=== PATIENT | male | born 1965 | race Caucasian/White ===

== ENCOUNTER 2025-08-16 00:50 | Emergency (ER) | payer BC, SELFPAY ==
[2025-08-16 01:31] VITALS: BP 182/93; PULSE 80; RESP 20; TEMP 36.6; O2SAT 96
--- NOTE | 2025-08-16 02:01 | PD.EDEXREM ---
ED Extremity Problem RME/HPI General Chief complaint: General Adult/Misc Complain Stated complaint: Ganglion cyst left wrist Time Seen by Provider: 08/16/25 01:45 Arrival date/time: 08/16/25 00:50 60M with history of HTN and gout presents to ED with L wrist pain/gout flare. Patient denies fall/trauma, fevers/chills, and surgery on that joint. Patient states his trigger for gout is nuts and he had some recently. Limitations: no limitations Related Data Home Medications ?Medication ?Instructions ?Recorded ?Confirmed losartan 25 mg tablet 25 mg PO QDAY 07/07/18 07/08/18 Previous Rx's ?Medication ?Instructions ?Recorded prednisone 50 mg tablet 50 mg PO QDAY 5 days #5 tabs 08/16/25 Allergies Allergy/AdvReac Type Severity Reaction Status Date / Time KG Inhibitors Allergy Severe Swelling Verified 08/16/25 00:52 of Lip/Tongue/Throat Review of Systems Review of Systems Systems Reviewed: All systems reviewed, normal except as documented Musculoskeletal Musculoskeletal: Reports as per HPI and Reports arthralgias Past Medical History Past Medical History NEUROLOGIC: Positive Neurological Disorders, Migraine and Head Trauma (as a child) CARDIAC: Positive Cardiac Disorders, Angina, Heart Murmur and Hypercholesterolemia; Negative Congestive Heart Failure RESPIRATORY: Positive Pneumonia; Negative Chronic Obstructive Pulmonary Disease (COPD) GASTROINTESTINAL: Positive Gastrointestinal Disorders GENITOURINARY: Negative Genitourinary Disorders or Renal Disease MUSCULOSKELETAL: Positive Musculoskeletal Disorders and Fractures (right arm x3 left x1 right leg x1 left knee skull fracture as a child) ENT: Positive Head Trauma (as a child) ENDOCRINE: Positive Endocrine Disorders and Diabetes Mellitus Type 2; Negative Diabetes Mellitus Type 1 HEMATOLOGIC: Negative Blood Disorders OTHER HISTORY: Positive Chicken Pox and Mumps; Negative Autoimmune Disease Family History FAMILY HISTORY: Positive Family Cancer (uncle leukemia); Negative Family Psychiatric Problems, Family Respiratory Disorders, Family Cardiac Disorders, Family Gastrointestinal Problems, Family Surgery or Family Anesthesia Reaction Surgical History SURGICAL: Positive Tonsillectomy Social History SMOKING STATUS: Never smoker ED Exam General Limitations: Present no limitations General appearance: Present alert and in no apparent distress Head Head exam: Present atraumatic Neck Neck exam: Present normal inspection, full ROM and trachea midline Chest Chest inspection: Present normal inspection and symmetric chest wall rise Expanded Upper Extremity Exam Forearm/Wrist exam: Absent full ROM (L) Neurological Exam Neurological exam: Present alert and oriented X3 Psychiatric Psychiatric exam: Present normal affect and normal mood Skin Skin exam: Present warm, dry, intact and normal color Course Quality Measures none Orders Category Date Time Status Dexamethasone Inj [Decadron Inj] Med 08/16/25 01:46 Discontinued 10 mg PO X1 ONE HYDROcodone*/APAP 5/325 [Salcha 5/325] Med 08/16/25 01:46 Discontinued 1 tab PO X1 ONE Vital Signs Vital signs: Vital Signs Temperature 98 F 08/16/25 01:31 Pulse Rate 80 08/16/25 01:31 Respiratory Rate 20 08/16/25 01:31 Blood Pressure 182/93 H 08/16/25 01:31 Pulse Oximetry (%) 96 08/16/25 01:31 Oxygen Delivery Method Room Air 08/16/25 01:31 O2 at 96% on RA and WNLs Extremity Problem MDM Narrative MDM Narrative:: 60M with history of HTN and gout presents to ED with L wrist pain/gout flare. Patient denies fall/trauma, fevers/chills, and surgery on that joint. Patient states his trigger for gout is nuts and he had some recently. Physical exam reveals reduced ROM of L wrist. No redness or swelling. Patient is afebrile, calm, and alert. Meds and chief counsel given. Patient data External records reviewed:: [facility] previous records Clinical information provided by:: patient Social determinants that could affect healthcare access:: none Patient has the following chronic illnesses:: HTN and gout How is presenting disease/condition affected by chronic disease/condition?: exacerbated by Evaluation data The following diagnostics were reviewed and interpreted by me:: other (specify) (none) Lab and/or radiology exams considered but not ordered:: not ordered Interpretation Summary: n/a Medications / Prescriptions Medications or Prescriptions considered but not ordered:: ordered Medication administrations:: Medication Administration History Discontinued Medications Hydrocodone Bitart/Acetaminophen (Hydrocodone/Apap 5/325 Tablet) 1 tab PO X1 ONE Stop: 08/16/25 01:47 Dexamethasone Sodium Phosphate (Dexamethasone Sod Phos Inj 10 Mg/Ml Vial) 10 mg PO X1 ONE Stop: 08/16/25 01:47 above Consultations Consultation(s) initiated? (list below): No Diagnosis Extremity Problem Differential Diagnosis: herpes zoster, gout, cellulitis, superficial thrombophlebitis, deep venous thrombosis of upper extremity, lower extremity edema, deep vein thrombosis of lower extremity and other (joint pain) Most likely diagnosis given after review of the tests above:: joint pain and gout flare Admission Indicated Admission indicated?: not indicated Admission Request Was there a request for admission?: No Disposition Plan Disposition Plan: Discharge Discharge Attestation Discharge Attestation: The patient and all family members were given an opportunity to ask questions and understood the discharge instructions. Discharge instructions specifically effects, indications for sooner follow up or return to the emergency department, and the expected course of current diagnosis. Patient condition: Stable Discharge Plan Plan Patient Disposition: HOME (Self Care) Discharge Disposition comment: Stable Prescriptions/Referrals Prescriptions/Med Rec: New prednisone 50 mg tablet 50 mg PO QDAY 5 Days Qty: 5 0RF No Action losartan 25 mg Tablet 25 mg PO QDAY Problem List Clinical Impression: Joint pain, Gout flare Patient/Caregiver Discharge Instructions Education Materials: ED Arthralgia, ED Gout Additional Instructions: Please follow-up with PCP within 24-48 hours and return immediately if symptoms worsen. NSAIDs like ibuprofen tend to work better for this type of pain. Print Language: Sen[place]alese Stand Alone Forms: Patient Portal Info Letter TOMEKA/NONA Supervising Physician TORIBIO Supervising Physician: Dr. Grey
[2025-08-16] MEDS: HYDROcodone/APAP 5/325 TABLET 1 TAB PO (02:15)
[2025-08-16] MEDS: DEXAMETHASONE SOD PHOS INJ 10 MG/ML VIAL PO (02:15)
== END 2025-08-16 02:16 | disposition home or self-care (01) ==
LOC: SERX 02:24
PROVIDERS: Emergency Provider Emergency Medicine; PCP Family Medicine
DX: M10.9 Gout, unspecified (principal)
CPT/HCPCS: 99281; J1100; A9270